=== PATIENT | female | born 1940 | race Caucasian/White ===

== ENCOUNTER 2022-12-19 15:58 | Inpatient (IN) | payer BC ==
[~2022-12-19] VITALS: Ht 162.6 cm; Wt 83.9 kg
--- NOTE | 2022-12-19 16:00 | NUR ---
BIB [facility] FROM [facility], C/O RIGHT ARM PAIN AFTER A GLF, FAMILY WANTS HER EVALUATED FOR WORSENING "CONFUSION". PLACED IN BED, AAOX3, BREATHING EVEN AND UNLABORED SATURATING AT 96%RA.
--- NOTE | 2022-12-19 16:30 | NUR ---
Per Medics "Daughter Zara [phone] (POA) expressed concerns about her getting more disoriented/confused. Gets easily agitated She wants psych evaluation." The [facility] could NOT handle her anymore
--- NOTE | 2022-12-19 16:41 | NUR ---
MECHANICAL DESIGN ENGINEER FACILITIES AT BEDSIDE
--- NOTE | 2022-12-19 17:33 | NUR ---
PATIENT REFUSED BLOOD WORKS
--- NOTE | 2022-12-19 18:00 | NUR ---
spoke with the daughter and would like to have c.diff test to her mother since she is having watery diarrhea according to the boarding caregivers. md made aware. plan of care continues
--- NOTE | 2022-12-19 18:38 | NUR ---
SUBMITTED MOVE PACKET
[2022-12-19] MEDS ORDERED: ZOLP5TAB8 PO (19:03)
[2022-12-19] MEDS ORDERED: LORA-258 PO (19:03)
[2022-12-19] MEDS ORDERED: QUET25TA PO (19:03)
[2022-12-19] MEDS ORDERED: VANC250C12 PO (19:03)
[2022-12-19] MEDS ORDERED: FERR325T23 PO (19:04)
[2022-12-19] MEDS ORDERED: SERT100T12 PO (19:16)
[2022-12-19] MEDS ORDERED: ASPI-1420 PO (19:16)
[2022-12-19] MEDS ORDERED: DICL100G34 TP (19:16)
[2022-12-19] MEDS ORDERED: GABA600T12 PO (19:16)
[2022-12-19] MEDS ORDERED: ONDA4TAB11 PO (19:16)
[2022-12-19] MEDS ORDERED: SIME80TA15 PO (19:16)
[2022-12-19] MEDS ORDERED: AMLO-212 PO (19:16)
[2022-12-19] MEDS ORDERED: LEVO75TA7 PO (19:16)
[2022-12-19] MEDS ORDERED: CALC500T13 PO (19:16)
[2022-12-19] MEDS ORDERED: FLUT16SP (19:16)
[2022-12-19] MEDS ORDERED: PENT400T17 PO (19:16)
[2022-12-19] MEDS ORDERED: DORZ10DR11 EACHEYE (19:16)
[2022-12-19] MEDS ORDERED: LISI40TA13 PO (19:16)
--- NOTE | 2022-12-19 19:46 | NUR ---
PT REFUSED VS TAKEN.
[2022-12-19] MEDS ORDERED: MORPHINE SULFATE INJ 2 MG/ML DISP.SYRIN IV PRN (22:00)
[2022-12-19] MEDS ORDERED: IV NS 0.9% 1,000 ML IV SCH (22:00)
[2022-12-19] MEDS ORDERED: DICLOFENAC TOPICAL 100 GM TUBE TP PRN (22:00)
[2022-12-19] MEDS ORDERED: SIMETHICONE 80 MG TAB.CHEW PO PRN (22:00)
[2022-12-19] MEDS ORDERED: ONDANSETRON HCL/PF 4 MG/2 ML VIAL IVP PRN (22:00)
--- NOTE | 2022-12-19 22:11 | NUR ---
REPROT GIVEN TO CARLOS THOMAS FOR HORTENSIA
--- NOTE | 2022-12-19 22:28 | NUR ---
PHLEB ATTEMPTED TO DO BLOOD DRAW ONCE AGAIN. PT STILL REFUSING.
[2022-12-19] MEDS ORDERED: ENOXAPARIN SODIUM 40 MG/0.4 ML DISP.SYRIN SQ ONE (23:00)
[2022-12-20 00:15] VITALS: BP 153/73
[2022-12-20] MEDS: CHOLESTYRAMINE/ASPARTAME 4 G/PKT PACKET PO SCH ×2 (00:30→12:30)
--- NOTE | 2022-12-20 00:30 | NUR ---
SUSTAINABLE AGRICULTURE FACULTY NOTE ADMITTED THIS PATIENT FROM ER VIA [facility]. PATIENT IS AWAKE, ALERT AND ORIENTED X 2 WITH PERIODS OF CONFUSION. VS TAKEN FOLLOWS: T 97.6, CA 91, RR 19, O2 SAT 98%, BP 153/73. AFEBRILE. NOT IN ANY FORM OF RESPIRATORY OR CARDIAC DISTRESS NOTED AT THIS TIME. NO IV ACCESS. MD AWARE. BODY AND SKIN ASSESSMENT DONE. PICTURES TAKEN AND PLACED TO CHART. SAFETY PRECAUTIONS IMPLEMENTED: CALL LIGHT AND TABLE WITHIN REACH, SIDE RAILS UP X 3, BED IN LOWEST LOCKED POSITION. WILL CONTINUE PLAN OF CARE.
--- NOTE | 2022-12-20 03:05 | NUR ---
RN NOTE PATIENT IS EASILY AGITATED. PATIENT REFUSED TO TAKE QUESTRAN AND REFUSED TO RECEIVE LOVENOX. KEPT COMFORTABLE IN BED. WILL CONTINUE TO MONITOR
[2022-12-20 04:00] VITALS: BP 110/71
--- NOTE | 2022-12-20 07:08 | NUR ---
PROJECT DESIGNER OPENING NOTES RECEIVED PATIENT AWAKE IN BED, A/Ox,3 EPISODES OF CONFUSION. AGITATED AND YELLING. ON ROOM AIR, NO S/S OF RESPIRATORY DISTRESS. ON TELE MONITORING BUT CURRENTLY REFUSING. NO IV ACCESS PATIENT IS REFUSING. PATIENT IS INCONTINENT USES DIAPER. SKIN ISSUES: SACRAL REDNESS, L LEG, R LEG L THIGH BRUISES, R&L SOLE DRY SKIN. SAFETY MEASURES IN PLACE: BED LOCKED AND IN LOWEST POSITION, HOB ELEVATED, SIDE RAILS UPx3, BED ALARM ON, CALL LIGHT WITHIN REACH. WILL CONTINUE TO MONITOR.
--- NOTE | 2022-12-20 07:10 | NUR ---
RN CLOSING NOTE PATIENT IN BED; IS AWAKE, ALERT AND ORIENTED X 2 WITH PERIODS OF CONFUSION. STABLE ON ROOM AIR. IN NO ACUTE DISTRESS. NO S/S OF PAIN OR DISCOMFORT NOTED AT THIS TIME. SAFETY PRECAUTIONS IN PLACE: BED ALARM ON, CALL LIGHT AND TABLE WITHIN REACH, SIDE RAILS UP X 3, BED IN LOWEST LOCKED POSITION. ENDORSED TO MORNING SHIFT FOR HORTENSIA.
[2022-12-20 08:00] VITALS: BP 127/55
[2022-12-20] MEDS: LEVOTHYROXINE SODIUM 75 MCG TABLET PO SCH (08:01)
[2022-12-20] MEDS: QUETIAPINE FUMARATE 25 MG TABLET PO SCH ×3 (09:00→16:49)
[2022-12-20] MEDS: TIMOLOL MAL/DORZOLAM HCL OPHTH 10 ML BOTTLE EACHEYE SCH ×2 (09:00→16:49)
[2022-12-20] MEDS ORDERED: IV NS 0.9% 1,000 ML IV PRN (09:00)
[2022-12-20] MEDS: GABAPENTIN 300 MG CAPSULE PO SCH ×2 (09:00→16:49)
[2022-12-20] MEDS: SERTRALINE HCL 50 MG TABLET PO SCH ×2 (09:00→11:35)
[2022-12-20] MEDS: FERROUS SULFATE (325 MG) 325 MG/TAB TABLET PO SCH ×2 (09:00→16:49)
[2022-12-20] MEDS: ASPIRIN EC 81 MG TABLET.DR PO SCH (09:00)
[2022-12-20] MEDS: AMLODIPINE BESYLATE 5 MG TABLET PO SCH (09:00)
[2022-12-20] MEDS: PENTOXIFYLLINE 400 MG TABLET.SA PO SCH ×2 (09:00→16:49)
[2022-12-20] MEDS: LISINOPRIL (20MG) 20 MG TABLET PO SCH (09:00)
--- NOTE | 2022-12-20 09:16 | NUR ---
RN NOTES PATIENT REFUSED ALL 0900 MEDICATION, STATED SHE JUST WANTS TO SLEEP AND SHE'LL TAKE THEM TOMORROW MORNING. RISKS AND BENEFITS EXPLAINED. CHARGE NURSE AWARE, WILL CONTINUE TO MONITOR.
[2022-12-20] MEDS: ACETAMINOPHEN 325 MG TABLET PO PRN (10:01)
--- NOTE | 2022-12-20 10:09 | NUR ---
RN NOTES PATIENT REQUESTED FOR PRN TYLENOL FOR PAIN IN HER R ARM. PRN TYLENOL ADMINISTERED, ICE PACK GIVEN. WILL CONTINUE TO MONITOR.
[2022-12-20 12:17] LABS: BASOPHILS % (AUTO) 0.5 % (0.0-2.0); EOSINOPHILS % (AUTO) 2.2 % (0.0-6.0); HEMATOCRIT 36 % (33-45); HEMOGLOBIN 11.4 g/dL (11.5-14.8); LYMPHOCYTES # (AUTO) 0.9 K/uL (0.8-4.8); LYMPHOCYTES % (AUTO) 16.9 % (20.0-44.0); MEAN CORPUSCULAR HGB CONC 31 g/dl (31.0-36.0); MEAN CORPUSCULAR VOLUME 80 fL (82-100); MONOCYTES # (AUTO) 0.4 K/uL (0.1-1.30); MONOCYTES % (AUTO) 6.7 % (2.0-12.0); NEUTROPHILS % (AUTO) 73.7 % (43.0-81.0); PLATELET COUNT (AUTO) 114 K/uL (150-450); RED BLOOD CELL COUNT(AUTO) 4.55 MIL/uL (4.0-5.2); WHITE BLOOD COUNT (AUTO) 5.5 K/uL (4.3-11.0)
[2022-12-20 12:21] LABS: CARBON DIOXIDE 18 mmol/L (21-32); CHLORIDE 111 mmol/L (98-107); GLUCOSE 137 mg/dL (74-106); MAGNESIUM 2.1 mg/dL (1.8-2.4); PHOSPHORUS 4.2 mg/dL (2.5-4.9); POTASSIUM 4.8 mmol/L (3.5-5.1); SODIUM SERUM 141 mmol/L (136-145); UREA NITROGEN, BLOOD 51 mg/dL (7-18)
[2022-12-20 12:32] LABS: THYROID STIMULATING HORMONE 3.413 uIU/mL (0.358-3.74)
[2022-12-20 15:27] VITALS: BP 110/48
--- NOTE | 2022-12-20 15:31 | NUR ---
RN NOTES PATIENT NOTED TO BE MORE COMPLIANT WITH CARE, FREQUENT REORIENTING DONE WHEN EPISODE OF CONFUSION ARE NOTED. WILL CONTINUE TO MONITOR.
[2022-12-20] MEDS ORDERED: ONDANSETRON HCL 4 MG/5 ML SOLUTION PO PRN (17:30)
[2022-12-20] MEDS: ONDANSETRON 4 MG TAB.RAPDIS PO PRN (17:43)
--- NOTE | 2022-12-20 18:42 | NUR ---
GEAR INSPECTOR CLOSING NOTES PATIENT AWAKE IN BED, A/Ox,2-3 EPISODES OF CONFUSION. STABLE ON ROOM AIR, NO S/S OF RESPIRATORY DISTRESS. ON TELE MONITORING BUT CURRENTLY REFUSING. NO IV ACCESS PATIENT IS REFUSING. PATIENT IS INCONTINENT USES DIAPER. SKIN ISSUES: SACRAL REDNESS, L LEG, R LEG L THIGH BRUISES, R&L SOLE DRY SKIN. SAFETY MEASURES MAINTAINED: BED LOCKED AND IN LOWEST POSITION, HOB ELEVATED, SIDE RAILS UPx3, BED ALARM ON, CALL LIGHT WITHIN REACH. WILL ENDORSE TO NEXT SHIFT ANY HORTENSIA.
[2022-12-20 20:00] VITALS: BP 112/48
--- NOTE | 2022-12-20 20:00 | NUR ---
RECEIVED PATIENT IN BED, ALERT/ORIENTED X1, ROOM AIR, NO COMPLAIN OF PAIN, CONFUSED, RE-ORIENTED TO TIME, PLACE AND SITUATION, VS TAKEN, KEPT SAFE, FALL PRECAUTION, WILL CONTINUE TO MONITOR.
[2022-12-20 20:04] VITALS: BP 112/48
--- NOTE | 2022-12-20 20:33 | NUR ---
SPOKE WITH ADRIAN MOON, DAUGHTER AND POA OF PATIENT TO GET CONSENT FOR MRI WO BRAIN. ALSO WITNESSED BY GAVINO MENDOZA RN.
[2022-12-20] MEDS: ENOXAPARIN SODIUM 30 MG/0.3 ML DISP.SYRIN SQ SCH (21:12)
[2022-12-21] VITALS (7 sets, daily range): BP systolic 100–117; BP diastolic 43–61
[2022-12-21] MEDS: CHOLESTYRAMINE/ASPARTAME 4 G/PKT PACKET PO SCH ×2 (00:28→12:40)
--- NOTE | 2022-12-21 06:25 | NUR ---
ALERT/ORIENTED X2, ROOM AIR, NO COMPLAIN OF PAIN, EPISODES OF CONFUSION, RE-ORIENTED PRN, SACRAL REDNESS, ZGUARD APPLIED, INCONTINENT OF BOWEL AND BLADDER. NO LOOSE BM THIS SHIFT. HAD BM DURING DAY SHIFT, STOOL SAMPLE SENT TO LAB FOR C-DIFF, PENDING RESULTS. PSYCH CONSULT, PT, OT EVAL AND TREATMENT, MRI BRAIN WO CONTRAST, TELEPHONE CONSENT OBTAINED FROM BILLY MOON.
--- NOTE | 2022-12-21 07:04 | NUR ---
SNOW PLOW TRACTOR OPERATOR OPENING NOTES RECEIVED PATIENT RESTING IN BED, A/Ox2-3 EPISODES OF CONFUSION. ON ROOM AIR, NO S/S OF RESPIRATORY DISTRESS. ON TELE MONITORING BUT CURRENTLY REFUSING. NO IV ACCESS PATIENT IS REFUSING. PATIENT IS INCONTINENT USES DIAPER. SKIN ISSUES: SACRAL REDNESS, L LEG, R LEG L THIGH BRUISES, R&L SOLE DRY SKIN. SAFETY MEASURES IN PLACE: BED LOCKED AND IN LOWEST POSITION, HOB ELEVATED, SIDE RAILS UPx3, BED ALARM ON, CALL LIGHT WITHIN REACH. WILL CONTINUE TO MONITOR.
[2022-12-21] MEDS: TIMOLOL MAL/DORZOLAM HCL OPHTH 10 ML BOTTLE EACHEYE SCH ×2 (08:10→16:25)
[2022-12-21] MEDS: QUETIAPINE FUMARATE 25 MG TABLET PO SCH (08:10)
[2022-12-21] MEDS: LEVOTHYROXINE SODIUM 75 MCG TABLET PO SCH (08:10)
[2022-12-21] MEDS: AMLODIPINE BESYLATE 5 MG TABLET PO SCH (08:11)
[2022-12-21] MEDS: GABAPENTIN 300 MG CAPSULE PO SCH ×2 (08:11→16:25)
[2022-12-21] MEDS: ASPIRIN EC 81 MG TABLET.DR PO SCH (08:11)
[2022-12-21] MEDS: FERROUS SULFATE (325 MG) 325 MG/TAB TABLET PO SCH ×2 (08:11→16:25)
[2022-12-21] MEDS: PENTOXIFYLLINE 400 MG TABLET.SA PO SCH ×2 (08:11→16:26)
[2022-12-21] MEDS: SERTRALINE HCL 50 MG TABLET PO SCH (08:11)
[2022-12-21] MEDS: LISINOPRIL (20MG) 20 MG TABLET PO SCH (08:12)
[2022-12-21] MEDS: ACETAMINOPHEN 325 MG TABLET PO PRN (08:12)
--- NOTE | 2022-12-21 09:14 | NUR ---
RN NOTES PATIENT COMPLAINED OF HEADACHE, PRN TYLENOL ADMINISTERED. PATIENT ALSO COMPLAINED OF PAIN OF R ARM, ICE PACK APPLIED. WILL CONTINUE TO MONITOR.
[2022-12-21] MEDS ORDERED: QUETIAPINE FUMARATE 25 MG TABLET PO PRN (10:30)
[2022-12-21 11:15] LABS: CALCIUM, SERUM 9.9 mg/dL (8.5-10.1); CARBON DIOXIDE 17 mmol/L (21-32); CHLORIDE 111 mmol/L (98-107); CREATININE 2.1 mg/dL (0.6-1.3); GLUCOSE 151 mg/dL (74-106); POTASSIUM 5.1 mmol/L (3.5-5.1); SODIUM SERUM 140 mmol/L (136-145); UREA NITROGEN, BLOOD 51 mg/dL (7-18)
[2022-12-21] MEDS: LORAZEPAM 0.5 MG TABLET PO PRN (16:33)
--- NOTE | 2022-12-21 17:19 | NUR ---
RN NOTES PATIENT EXPRESSED NEEDING SOMETHING TO CALM DOWN BEFORE MRI. PRN ATIVAN ADMINISTERED. PATIENT JUST PICKED UP FOR MRI IN STABLE CONDITION. WILL AWAIT PATIENT RETURN.
--- NOTE | 2022-12-21 18:40 | NUR ---
RN NOTES PATIENT RETURNED FROM MRI, GIVEN DINNER.
--- NOTE | 2022-12-21 18:52 | NUR ---
VINYL FLOORING INSTALLER CLOSING NOTES PATIENT RESTING IN BED, A/Ox2-3 EPISODES OF CONFUSION. STABLE ON ROOM AIR, NO S/S OF RESPIRATORY DISTRESS. ON TELE MONITORING BUT CURRENTLY REFUSING. NO IV ACCESS PATIENT IS REFUSING. PATIENT IS INCONTINENT USES DIAPER. SKIN ISSUES: SACRAL REDNESS, L LEG, R LEG L THIGH BRUISES, R&L SOLE DRY SKIN. SAFETY MEASURES MAINTAINED: BED LOCKED AND IN LOWEST POSITION, HOB ELEVATED, SIDE RAILS UPx3, BED ALARM ON, CALL LIGHT WITHIN REACH. WILL ENDORSE TO NEXT SHIFT ANY HORTENSIA.
[2022-12-21] MEDS: ENOXAPARIN SODIUM 30 MG/0.3 ML DISP.SYRIN SQ SCH (21:23)
[2022-12-22] MEDS: CHOLESTYRAMINE/ASPARTAME 4 G/PKT PACKET PO SCH ×2 (00:30→12:36)
[2022-12-22] MEDS: ONDANSETRON 4 MG TAB.RAPDIS PO PRN (00:34)
--- NOTE | 2022-12-22 00:34 | NUR ---
RN NOTE PRN ZOFRAN GIVEN FOR NAUSEA TOLERATED WELL.
[2022-12-22] MEDS: CALCIUM CARBONATE 500 MG TAB.CHEW PO PRN ×2 (01:37→21:07)
--- NOTE | 2022-12-22 01:37 | NUR ---
RN NOTE PRN TUMS GIVEN FOR HEART BURN TOLERATED WELL.
[2022-12-22 07:24] LABS: CALCIUM, SERUM 10.5 mg/dL (8.5-10.1); CARBON DIOXIDE 17 mmol/L (21-32); CHLORIDE 112 mmol/L (98-107); CREATININE 1.8 mg/dL (0.6-1.3); GLUCOSE 111 mg/dL (74-106); POTASSIUM 5.5 mmol/L (3.5-5.1); SODIUM SERUM 140 mmol/L (136-145); UREA NITROGEN, BLOOD 60 mg/dL (7-18)
--- NOTE | 2022-12-22 07:25 | NUR ---
RN OPENING NOTE RECEIVED PATIENT IN BED ASLEEP, EASILY AROUSED. NO SIGNS OF ACUTE DISTRESS NOTED. ON ROOM AIR, TOLERATING WELL. NO SOB NOTED, BREATHING EVEN AND UNLABORED. ON TELE MONITOR BUT PATIENT REFUSING. DENIES ANY PAIN AT THIS TIME. SAFETY MEASURE IN PLACE. BED IN LOW AND LOCKED POSITION, SIDE RAILS UP X2, CALL LIGHT PLACED WITHIN EASY REACH. WILL CONTINUE TO MONITOR PATIENT.
[2022-12-22 08:00] VITALS: BP 115/50
[2022-12-22] MEDS: TIMOLOL MAL/DORZOLAM HCL OPHTH 10 ML BOTTLE EACHEYE SCH ×2 (09:05→16:53)
[2022-12-22] MEDS: PENTOXIFYLLINE 400 MG TABLET.SA PO SCH ×2 (09:07→16:51)
[2022-12-22] MEDS: LEVOTHYROXINE SODIUM 75 MCG TABLET PO SCH (09:07)
[2022-12-22] MEDS: FERROUS SULFATE (325 MG) 325 MG/TAB TABLET PO SCH ×2 (09:07→16:51)
[2022-12-22] MEDS: GABAPENTIN 300 MG CAPSULE PO SCH ×2 (09:07→16:51)
[2022-12-22] MEDS: LISINOPRIL (20MG) 20 MG TABLET PO SCH (09:07)
[2022-12-22] MEDS: ASPIRIN EC 81 MG TABLET.DR PO SCH (09:08)
[2022-12-22] MEDS: SERTRALINE HCL 50 MG TABLET PO SCH (09:08)
[2022-12-22] MEDS: AMLODIPINE BESYLATE 5 MG TABLET PO SCH (09:08)
[2022-12-22 12:00] VITALS: BP 124/47
[2022-12-22] MEDS ORDERED: SODIUM POLYSTYRENE SULF. PWD 15 GM UDC PO ONE (14:30)
--- NOTE | 2022-12-22 15:03 | NUR ---
SS note: SS requested as pt. is expressing not wanting to return to board & care that daughter/EDUARDO DOYLE (DTR) TEL:[phone] is requesting pt. to discharge to. LORNA called daughterEDUARDO (DTR) TEL:[phone] and requested she provide DPOA paperwork to determine if daughter already has no over healthcare. Eduardo requested SW call the facility: [facility] [phone] and have them send over the DPOA paperwork. LORNA called facility and spoke to Shreya who stated she would send DPOA paperwork as soon as possible. Pt.'s daughter expressed that she has concerns that pt.may have early Dementia due to behavioral problems & confusion. Pt. has had psych and neuro consult see notes for details.
[2022-12-22 16:00] VITALS: BP 147/64
[2022-12-22] MEDS: LORAZEPAM 0.5 MG TABLET PO PRN (17:07)
[2022-12-22 17:12] LABS: BILIRUBIN,URINE NEGATIVE (NEGATIVE); COLOR,URINE YELLOW (YELLOW); LEUKOCYTE ESTERASE ,URINE 3+ (NEGATIVE); NITRITE, URINE POSITIVE (NEGATIVE); PROTEIN,URINE NEGATIVE (NEGATIVE); UGLUCOSE NEGATIVE (NEGATIVE); UROBILINOGEN,URINE 0.2 EU/dL (0.2)
[2022-12-22 17:37] LABS: BACTERIA,URINE 3+ /HPF (None Seen); WBC,URINE 51-80 /HPF (0-3)
--- NOTE | 2022-12-22 18:57 | NUR ---
RN CLOSING NOTE PATIENT IN BED AWAKE, A/O X2-3. FORGETFUL. NO SIGNS OF ACUTE DISTRESS NOTED. REMAINS STABLE ON ROOM AIR, NO SOB NOTED, BREATHING EVEN AND UNLABORED. ON TELE MONITOR BUT PATIENT REFUSING. DENIES ANY PAIN AT THIS TIME. ALL DUE MEDS GIVEN, TOLERATED WELL. SAFETY MEASURE MAINTAINED. BED IN LOW AND LOCKED POSITION, SIDE RAILS UP X2, CALL LIGHT PLACED WITHIN EASY REACH. WILL ENDORSE TO NEXT SHIFT FOR CONTINUITY OF CARE.
--- NOTE | 2022-12-22 19:30 | NUR ---
noc rn note Received patient with eyes closed, easy to arouse. patient mumbling to self. no s/s of apparent distress on room air. no c/o pain at this time. refused engine monitor as endorsed. safety in place-- bed in lowest locked position, call light within reach, side rails up X3, bed alarm in place. will cont with the plan of care for patient.
[2022-12-22 20:00] VITALS: BP 120/55
[2022-12-22] MEDS: ACETAMINOPHEN 325 MG TABLET PO PRN (20:19)
--- NOTE | 2022-12-22 20:25 | NUR ---
noc rn note patient c/o 9/10 pain on her [address] shoulder but refused Morphine and asked for Tylenol instead. Unopened syringe of Morphine returned in the [facility] with CARLOS Barth and patient given Tylenol as ordered PRN. will re-assess.
[2022-12-22] MEDS: ENOXAPARIN SODIUM 30 MG/0.3 ML DISP.SYRIN SQ SCH (21:00)
[2022-12-23] VITALS: BP 144/69
[2022-12-23] MEDS: CHOLESTYRAMINE/ASPARTAME 4 G/PKT PACKET PO SCH ×2 (00:50→12:19)
[2022-12-23 04:00] VITALS: BP 149/70
--- NOTE | 2022-12-23 07:35 | NUR ---
RN OPENING NOTES RECEIVED PATIENT ON BED AWAKE , A/OX3 , ABLE OT MAKE NEEDS KNOWN , PER NIGHT NURSE RN REFUSED TELEMONITOR , REFUSED IV ACCESS , ON ROOM AIR AND NO SOB OR DISTRESS NOTED , CALL WITHIN REACH , SAFETY MEASURE PROVIDED AND WILL CONTINUE TO MONITOR
--- NOTE | 2022-12-23 07:37 | NUR ---
noc rn note needs attended. report given to CARLOS Julian for continuity of care.
[2022-12-23 07:45] LABS: CALCIUM, SERUM 9.9 mg/dL (8.5-10.1); CARBON DIOXIDE 18 mmol/L (21-32); CHLORIDE 111 mmol/L (98-107); CREATININE 1.4 mg/dL (0.6-1.3); GLUCOSE 111 mg/dL (74-106); POTASSIUM 4.9 mmol/L (3.5-5.1); SODIUM SERUM 139 mmol/L (136-145); UREA NITROGEN, BLOOD 43 mg/dL (7-18)
[2022-12-23 08:00] VITALS: BP 149/60
[2022-12-23] MEDS: SERTRALINE HCL 50 MG TABLET PO SCH (08:30)
[2022-12-23] MEDS: ASPIRIN EC 81 MG TABLET.DR PO SCH (08:30)
[2022-12-23] MEDS: LEVOTHYROXINE SODIUM 75 MCG TABLET PO SCH (08:30)
[2022-12-23] MEDS: LISINOPRIL (20MG) 20 MG TABLET PO SCH (08:31)
[2022-12-23] MEDS: FERROUS SULFATE (325 MG) 325 MG/TAB TABLET PO SCH (08:31)
[2022-12-23] MEDS: GABAPENTIN 300 MG CAPSULE PO SCH (08:31)
[2022-12-23 08:32] VITALS: BP 149/60
[2022-12-23] MEDS: AMLODIPINE BESYLATE 5 MG TABLET PO SCH (08:32)
[2022-12-23] MEDS: PENTOXIFYLLINE 400 MG TABLET.SA PO SCH (08:58)
[2022-12-23] MEDS: TIMOLOL MAL/DORZOLAM HCL OPHTH 10 ML BOTTLE EACHEYE SCH (09:01)
[2022-12-23] MEDS ORDERED: CEFTRIAXONE 1 G in IV D5W 50 ML IV SCH (09:30)
--- NOTE | 2022-12-23 09:30 | NUR ---
RN NOTES PATIENT IS WITH ORDER OF IV ATB OF ROCEPHIN BUT PATIENT REFUSED , OFFERED 3X THE IV ACCESS AND MEDICATIONS AND STILL REFUSING , MD AWARE AND PT AWARE ABOUT THE RISK AND CONSEQUENCES OF REFUSING MEDICATIONS .
[2022-12-23] MEDS: LORAZEPAM 0.5 MG TABLET PO PRN (11:27)
[2022-12-23] MEDS ORDERED: CEPHALEXIN MONOHYDRATE 250 MG CAPSULE PO ONE (12:00)
[2022-12-23] MEDS ORDERED: QUET25TA PO (13:05)
[2022-12-23] MEDS ORDERED: CEPH500C2 PO (13:05)
--- NOTE | 2022-12-23 14:30 | NUR ---
HAND I BLOCKER NOTES PATIENT IS WITH ORDER FOR DISCHARGE TO HOME WITH DAUGHTER BRIAN , PATIENT REQUESTING TO GO TO HER DAUGHTERS HOME . ALL DISCHARGE PAPERS WERE PREPARED AND DISCHARGE INSTRUCTIONS GIVEN TO THE PATIENT AND DAUGHTER BRIAN REGARDING TO CONTINUE ANTIBIOTICS FOR UTI , HOME MEDICATIONS AND FOLLOW WITH PCP AND WHEN TO CALL 911 IN CASE OF EMERGENCY . PATIENT REFUSED BODY REASSESSMENT FOR DISCHARGE AND ALL BELONGINGS WERE TAKEN BY THE PATIENT AND FAMILY AND BELONGINGS FORM WAS SIGNED , PRESCRIPTION OF ATIVAN WAS GIVEN TO THE DAUGHTER , TRANSPORTATION WAS PROVIDED BY [facility] , LEFT WITH NO SOB OR DISTRESS NOTED AND IN A STABLE CONDITION , ASSISTED TO THE LOBBY BY CHIEF CUSTOMER OFFICER AND IN THE CAR .
[2022-12-24] MEDS ORDERED: ENSURE ENLIVE 237 ML LIQUID (VANILLA) PO SCH (09:00)
== END 2022-12-23 14:00 | disposition home or self-care (01) | DRG 640 ==
LOC: ER 16:00 → MEDSG1 21:10 → UNDOADMIN 21:10 → MED 22:29 → TELE 12-20 00:42
PROVIDERS: ADMIT Internal Medicine; ATTEND Student in an Organized Health Care Education/Training Program
DX: R62.7 Adult failure to thrive (principal); G93.41 Metabolic encephalopathy; N17.0 Acute kidney failure with tubular necrosis; F02.83 Dementia in other diseases classified elsewhere, unspecified severity, with mood disturbance; F02.84 Dementia in other diseases classified elsewhere, unspecified severity, with anxiety; G30.9 Alzheimer's disease, unspecified; N18.9 Chronic kidney disease, unspecified; I13.10 Hypertensive heart and chronic kidney disease without heart failure, with stage 1 through stage 4 chronic kidney disease, or unspecified chronic kidney disease; E87.5 Hyperkalemia; Z79.82 Long term (current) use of aspirin; Z79.899 Other long term (current) drug therapy; E03.9 Hypothyroidism, unspecified; W18.30XA Fall on same level, unspecified, initial encounter; Y92.049 Unspecified place in boarding-house as the place of occurrence of the external cause; M79.601 Pain in right arm; F32.9 Major depressive disorder, single episode, unspecified; M79.7 Fibromyalgia; E86.1 Hypovolemia; D63.8 Anemia in other chronic diseases classified elsewhere
CPT/HCPCS: 36415; 70551-TC; 71045-TC; 73030-TC; 73080-TC; 76770-TC; 80048-TC; 81001; 82607-TC; 83735-TC; 84100-TC; 84443-TC; 85025-TC; 87081-TC; 87086-TC; 97110-TC; 97112-TC; 97116-TC; 97535-TC; C9803; G0378; J0696; J1650; J2270; J7030; J7060; Q0162